=== PATIENT | male | born 1960 | race Caucasian/White ===

== ENCOUNTER 2017-03-21 14:30 | Inpatient (IN) | payer MEDICAID ==
[~2017-03-21] VITALS: Ht 182.9 cm; Wt 179.0 kg
[2017-03-21] MEDS ORDERED: SODIUM CHLORIDE 0.9% 1,000 ML IV ONE (14:43)
[2017-03-21] MEDS ORDERED: PLEASE ENTER ALLERGIES MC SCH ×2 (15:00)
[2017-03-21] MEDS ORDERED: SODIUM CHLORIDE FLUSH 10ML SYR IVF ONE ×2 (15:00→16:30)
[2017-03-21] MEDS ORDERED: PLEASE ENTER HEIGHT AND WEIGHT MC SCH (15:00)
[2017-03-21 15:20] LABS: BLOOD UREA NITROGEN 80 mg/dL (7-18)
[2017-03-21 15:26] LABS: DIFF TOTAL CELLS COUNTED 100 CELL DIFF
[2017-03-21 15:28] LABS: ANISOCYTOSIS 1+; HYPOCHROMIA 1+; MICROCYTOSIS 1+; POLYCHROMASIA 1+; VERIFY COUNTS? YES
[2017-03-21 15:29] LABS: OVALOCYTES 1+
[2017-03-21] MEDS ORDERED: GLYB2.5T2 PO (16:22)
[2017-03-21] MEDS ORDERED: SERT50TA5 PO (16:22)
[2017-03-21] MEDS ORDERED: AMLO5TAB2 PO (16:22)
[2017-03-21] MEDS ORDERED: AMLO5TAB4 PO (16:22)
[2017-03-21] MEDS ORDERED: LOSA50TA6 PO (16:22)
[2017-03-21] MEDS ORDERED: LINA5TAB PO (16:22)
[2017-03-21] MEDS ORDERED: LISI-167 PO (16:22)
[2017-03-21] MEDS ORDERED: APIX5TAB PO (16:22)
[2017-03-21] MEDS ORDERED: ATOR80TA75 PO (16:22)
[2017-03-21] MEDS ORDERED: INSULIN REGULAR 100 UNITS/ML, 3ML VIAL IVPush ONE (16:30)
[2017-03-21] MEDS ORDERED: SODIUM BICARB 8.4%, 50ML SYRINGE IVPush ONE (16:30)
[2017-03-21] MEDS ORDERED: FUROSEMIDE 40 MG/4 ML IVPush ONE (16:30)
[2017-03-21] MEDS ORDERED: CALCIUM CHLORIDE 10%, 10ML SYR IVPush ONE (16:30)
[2017-03-21] MEDS ORDERED: DEXTROSE 50%, 50ML SYRINGE IVPush ONE (16:30)
[2017-03-21] MEDS ORDERED: AMPICILLIN/SULBACTAM 1,500 MG in SODIUM CHLORIDE 0.9% 50 ML IV SCH (16:30)
[2017-03-21] MEDS ORDERED: SODIUM CHLORIDE FLUSH 10ML SYR IVF PRN (17:00)
[2017-03-21] MEDS ORDERED: INSULIN REGULAR 100 UNITS/ML, 3ML VIAL ONE (17:08)
[2017-03-21] MEDS ORDERED: SODIUM BICARBONATE 1 MEQ/ML, 50ML VIAL ONE (17:08)
[2017-03-21] MEDS ORDERED: FUROSEMIDE 40 MG/4 ML ONE (17:08)
[2017-03-21] MEDS ORDERED: CALCIUM CHLORIDE 10%, 10ML SYR ONE (17:08)
[2017-03-21] MEDS ORDERED: DEXTROSE 50%, 50ML VIAL ONE (17:08)
[2017-03-21] MEDS ORDERED: DOCUSATE 100 MG CAPSULE PO PRN (17:30)
[2017-03-21] MEDS ORDERED: POLYETHYLENE GLYCOL 17 GM PACKET PO PRN (17:30)
[2017-03-21] MEDS ORDERED: GUAIFENESIN/DM 200-20MG, 10ML UDC PO PRN (17:30)
[2017-03-21] MEDS ORDERED: ONDANSETRON ODT 4 MG PO PRN (17:30)
[2017-03-21 17:38] LABS: ABG COLLECTION SITE RIGHT RADIAL; COLLATERAL CIRCULATION TESTING NORMAL
[2017-03-21] MEDS ORDERED: VANCOMYCIN PER PHARMACY MC PRN (18:30)
[2017-03-21] MEDS ORDERED: PIPERACILLIN/TAZO/PMX 3.375GM 50 ML ONE (18:30)
[2017-03-21 19:48] LABS: ABG COLLECTION SITE RIGHT RADIAL; COLLATERAL CIRCULATION TESTING NORMAL
[2017-03-21] MEDS: SODIUM BICARB 8.4% IV SCH ×2 (19:48→22:53)
[2017-03-21] MEDS: SODIUM CHLORIDE 0.45% IV SCH ×2 (19:48→22:53)
[2017-03-21] MEDS: PIPERACILLIN/TAZO 2.25 GM in SODIUM CHLORIDE 0.9% 50 ML IV SCH (19:50)
[2017-03-21] MEDS: ENOXAPARIN 40 MG/0.4 ML SQ SCH (19:53)
[2017-03-21] MEDS ORDERED: PHARMACOKINETIC CONSULTATION MC ONE (20:00)
[2017-03-21] MEDS ORDERED: PHARMACOKINETIC MONITORING MC PRN (20:00)
[2017-03-21] MEDS: VANCOMYCIN 2,000 MG in SODIUM CHLORIDE 0.9% 500 ML IV SCH (20:49)
[2017-03-21 21:14] LABS: PATH.CAST-FLAG NOT PRESENT; SPERM-FLAG NOT PRESENT; SRC-FLAG NOT PRESENT; XTAL-FLAG NOT PRESENT; YLC-FLAG NOT PRESENT
[2017-03-21 21:16] LABS: ASPARTATE AMINO TRANSFERASE 52 U/L (15-37); BLOOD UREA NITROGEN 74 mg/dL (7-18)
[2017-03-21] MEDS ORDERED: GLUCAGON 1 MG IM PRN (22:00)
[2017-03-21] MEDS ORDERED: DEXTROSE 4 GM TAB.CHEW PO PRN (22:00)
[2017-03-21] MEDS ORDERED: DEXTROSE 50%, 50ML SYRINGE IVPush PRN (22:00)
[2017-03-21] MEDS: CLOTRIMAZOLE CRM 1%, 15GM TP SCH (22:08)
[2017-03-21 22:50] VITALS: BP_SYST 109; BP_SYST 152; BP_DIAS 92; BP_DIAS 94
[2017-03-22] MEDS: SODIUM ACETATE 75 MEQ in SODIUM CHLORIDE 0.45% 1,000 ML IV SCH ×2 (01:07→10:23)
[2017-03-22] MEDS: PIPERACILLIN/TAZO 2.25 GM in SODIUM CHLORIDE 0.9% 50 ML IV SCH ×2 (01:11→05:55)
[2017-03-22 04:00] VITALS: BP 134/64
[2017-03-22 04:47] LABS: BLOOD UREA NITROGEN 68 mg/dL (7-18)
[2017-03-22 05:40] LABS: DIFF TOTAL CELLS COUNTED 100 CELL DIFF
[2017-03-22 05:42] LABS: POLYCHROMASIA 1+; VERIFY COUNTS? YES
[2017-03-22 05:43] LABS: ANISOCYTOSIS 1+; HYPOCHROMIA 1+; MICROCYTOSIS 1+; OVALOCYTES 1+
[2017-03-22 05:50] LABS: ABG COLLECTION SITE RIGHT RADIAL; COLLATERAL CIRCULATION TESTING NORMAL
[2017-03-22] MEDS: VANCOMYCIN 2,000 MG in SODIUM CHLORIDE 0.9% 500 ML IV SCH (09:07)
[2017-03-22] MEDS: SODIUM CHLORIDE FLUSH 10ML SYR IVF SCH ×2 (09:08→21:09)
[2017-03-22] MEDS: CLOTRIMAZOLE CRM 1%, 15GM TP SCH ×2 (09:08→21:09)
[2017-03-22] MEDS ORDERED: LORazepam 2 MG/ML, 1ML ONE (10:18)
[2017-03-22] MEDS ORDERED: LORazepam 2 MG/ML, 1ML IVPush ONE (10:30)
[2017-03-22] MEDS ORDERED: PIPERACILLIN/TAZO/PMX 2.25GM 50 ML IV SCH (12:30)
[2017-03-22] MEDS: FERROUS SULFATE 325 MG TABLET PO SCH (16:13)
[2017-03-22] MEDS: ENOXAPARIN 40 MG/0.4 ML SQ SCH (16:13)
[2017-03-22] MEDS: PIPERACILLIN/TAZO 3.375 GM in SODIUM CHLORIDE 0.9% 50 ML IV SCH (17:21)
[2017-03-22] MEDS: HYDROcodone/APAP 5/325 TABLET PO PRN (21:08)
[2017-03-23] MEDS: HYDROcodone/APAP 5/325 TABLET PO PRN ×3 (00:02→20:47)
[2017-03-23] MEDS: PIPERACILLIN/TAZO 3.375 GM in SODIUM CHLORIDE 0.9% 50 ML IV SCH ×4 (00:02→18:43)
[2017-03-23 04:00] VITALS: BP 118/71
[2017-03-23 04:43] LABS: BLOOD UREA NITROGEN 53 mg/dL (7-18)
[2017-03-23] MEDS ORDERED: FUROSEMIDE 40 MG/4 ML ONE (09:31)
[2017-03-23] MEDS: SODIUM CHLORIDE FLUSH 10ML SYR IVF SCH ×2 (09:39→20:47)
[2017-03-23] MEDS: FERROUS SULFATE 325 MG TABLET PO SCH ×2 (09:39→16:28)
[2017-03-23] MEDS: FUROSEMIDE 40 MG/4 ML IV SCH (09:40)
[2017-03-23] MEDS: CLOTRIMAZOLE CRM 1%, 15GM TP SCH ×3 (09:41→21:00)
[2017-03-23] MEDS: INSULIN ASPART 100 UNITS/ML, PEN SQ-INSULIN SCH ×3 (11:00→20:41)
[2017-03-23 12:08] VITALS: BP 111/46
[2017-03-23] MEDS: DIPHENHYDRAMINE 25 MG CAPSULE PO PRN (14:16)
[2017-03-23 19:23] VITALS: BP 116/64
[2017-03-23] MEDS: APIXABAN 5 MG TABLET PO SCH (20:47)
[2017-03-23] MEDS: VANCOMYCIN 2,500 MG in SODIUM CHLORIDE 0.9% 500 ML IV SCH (20:47)
[2017-03-23] MEDS: ATORVASTATIN 80 MG TABLET PO SCH (20:47)
[2017-03-24] MEDS: PIPERACILLIN/TAZO 3.375 GM in SODIUM CHLORIDE 0.9% 50 ML IV SCH ×4 (00:31→17:58)
[2017-03-24 01:09] VITALS: BP 98/55
[2017-03-24 05:22] LABS: BLOOD UREA NITROGEN 51 mg/dL (7-18)
[2017-03-24 06:19] LABS: DIFF TOTAL CELLS COUNTED 100 CELL DIFF
[2017-03-24 06:22] LABS: ANISOCYTOSIS 1+; MICROCYTOSIS 1+; VERIFY COUNTS? YES
[2017-03-24 06:23] LABS: HYPOCHROMIA 1+; OVALOCYTES 1+; POLYCHROMASIA 1+
[2017-03-24] MEDS: INSULIN ASPART 100 UNITS/ML, PEN SQ-INSULIN SCH ×4 (07:00→21:00)
[2017-03-24 07:09] VITALS: BP 112/64
[2017-03-24] MEDS: FERROUS SULFATE 325 MG TABLET PO SCH ×2 (08:45→17:58)
[2017-03-24] MEDS: FUROSEMIDE 40 MG/4 ML IV SCH (08:45)
[2017-03-24] MEDS: CLOTRIMAZOLE CRM 1%, 15GM TP SCH ×2 (08:46→21:00)
[2017-03-24] MEDS: SODIUM CHLORIDE FLUSH 10ML SYR IVF SCH ×2 (08:46→21:10)
[2017-03-24] MEDS: APIXABAN 5 MG TABLET PO SCH ×2 (08:46→21:10)
[2017-03-24] MEDS: SERTRALINE 50MG TABLET PO SCH (08:46)
[2017-03-24] MEDS: HYDROcodone/APAP 5/325 TABLET PO PRN (08:58)
[2017-03-24 12:52] VITALS: BP 116/71
[2017-03-24 20:00] VITALS: BP 112/72
[2017-03-24] MEDS: ATORVASTATIN 80 MG TABLET PO SCH (21:10)
[2017-03-24] MEDS: VANCOMYCIN 2,500 MG in SODIUM CHLORIDE 0.9% 500 ML IV SCH (21:10)
[2017-03-24] MEDS: MICONAZOLE CRM 2%, 15GM TP SCH (22:33)
[2017-03-24] MEDS: DIPHENHYDRAMINE 25 MG CAPSULE PO PRN (22:33)
[2017-03-25] MEDS: PIPERACILLIN/TAZO 3.375 GM in SODIUM CHLORIDE 0.9% 50 ML IV SCH ×3 (00:32→12:39)
[2017-03-25 00:41] VITALS: BP 127/79
[2017-03-25 04:59] LABS: ASPARTATE AMINO TRANSFERASE 26 U/L (15-37); BLOOD UREA NITROGEN 49 mg/dL (7-18)
[2017-03-25 07:35] VITALS: BP 123/68
[2017-03-25] MEDS ORDERED: PROPOFOL 10 MG/ML, 50ML ONE (08:55)
[2017-03-25] MEDS: INSULIN ASPART 100 UNITS/ML, PEN SQ-INSULIN SCH ×4 (09:00→20:41)
[2017-03-25] MEDS ORDERED: ERGOCALCIFEROL 50,000 UNIT CAPSULE PO SCH (10:00)
[2017-03-25] MEDS: MICONAZOLE CRM 2%, 15GM TP SCH ×2 (11:00→20:41)
[2017-03-25] MEDS: SODIUM CHLORIDE FLUSH 10ML SYR IVF SCH ×2 (12:39→20:40)
[2017-03-25] MEDS: APIXABAN 5 MG TABLET PO SCH ×2 (12:39→20:40)
[2017-03-25] MEDS: SERTRALINE 50MG TABLET PO SCH (12:40)
[2017-03-25 14:26] VITALS: BP 120/72
[2017-03-25] MEDS: IRON SUCROSE COMPLEX 100MG/5ML IV SCH (17:47)
[2017-03-25 19:10] VITALS: BP 138/80
[2017-03-25] MEDS: FUROSEMIDE 40 MG/4 ML IV SCH (20:39)
[2017-03-25] MEDS: ATORVASTATIN 80 MG TABLET PO SCH (20:40)
[2017-03-25] MEDS: LACTOBACILLUS CHEW TABLET PO SCH ×2 (20:40→21:00)
[2017-03-25] MEDS: LOPERAMIDE 2 MG CAPSULE PO PRN (20:41)
[2017-03-25] MEDS: HYDROcodone/APAP 5/325 TABLET PO PRN (20:42)
[2017-03-26 01:14] VITALS: BP 144/83
[2017-03-26 05:25] LABS: BLOOD UREA NITROGEN 47 mg/dL (7-18)
[2017-03-26 06:00] LABS: ANISOCYTOSIS 1+; HYPOCHROMIA 1+; POLYCHROMASIA 1+
[2017-03-26 06:01] LABS: OVALOCYTES 1+; POIKILOCYTOSIS 1+
[2017-03-26 07:50] VITALS: BP 125/74
[2017-03-26] MEDS: INSULIN ASPART 100 UNITS/ML, PEN SQ-INSULIN SCH ×4 (08:00→20:01)
[2017-03-26] MEDS: FUROSEMIDE 40 MG/4 ML IV SCH ×2 (08:12→20:18)
[2017-03-26] MEDS: APIXABAN 5 MG TABLET PO SCH ×2 (08:12→20:17)
[2017-03-26] MEDS: SERTRALINE 50MG TABLET PO SCH (08:12)
[2017-03-26] MEDS: LACTOBACILLUS CHEW TABLET PO SCH ×3 (08:12→20:16)
[2017-03-26] MEDS: SODIUM CHLORIDE FLUSH 10ML SYR IVF SCH ×2 (08:13→20:16)
[2017-03-26] MEDS: LOPERAMIDE 2 MG CAPSULE PO PRN (08:25)
[2017-03-26] MEDS: DIPHENHYDRAMINE 25 MG CAPSULE PO PRN ×2 (08:29→20:17)
[2017-03-26 14:25] VITALS: BP 131/89
[2017-03-26] MEDS: MICONAZOLE CRM 2%, 15GM TP SCH ×2 (17:36→20:17)
[2017-03-26] MEDS: METOPROLOL TARTRATE 25 MG TABLET PO SCH (17:37)
[2017-03-26] MEDS: IRON SUCROSE COMPLEX 100MG/5ML IV SCH (17:37)
[2017-03-26 19:49] VITALS: BP 118/78
[2017-03-26] MEDS: ATORVASTATIN 80 MG TABLET PO SCH (20:17)
[2017-03-27 01:37] VITALS: BP 145/84
[2017-03-27 05:22] LABS: BLOOD UREA NITROGEN 44 mg/dL (7-18)
[2017-03-27] MEDS: METOPROLOL TARTRATE 25 MG TABLET PO SCH ×2 (05:47→17:41)
[2017-03-27 08:00] VITALS: BP 156/84
[2017-03-27] MEDS: INSULIN ASPART 100 UNITS/ML, PEN SQ-INSULIN SCH ×4 (08:00→20:02)
[2017-03-27] MEDS: LACTOBACILLUS CHEW TABLET PO SCH ×3 (08:12→20:01)
[2017-03-27] MEDS: MICONAZOLE CRM 2%, 15GM TP SCH ×2 (08:12→20:02)
[2017-03-27] MEDS: HYDROcodone/APAP 5/325 TABLET PO PRN (08:12)
[2017-03-27] MEDS: FUROSEMIDE 40 MG/4 ML IV SCH ×2 (08:13→20:00)
[2017-03-27] MEDS: SERTRALINE 50MG TABLET PO SCH (08:13)
[2017-03-27] MEDS: APIXABAN 5 MG TABLET PO SCH ×2 (08:13→20:01)
[2017-03-27] MEDS: SODIUM CHLORIDE FLUSH 10ML SYR IVF SCH ×2 (08:13→20:01)
[2017-03-27 13:25] VITALS: BP 147/84
[2017-03-27] MEDS: IRON SUCROSE COMPLEX 100MG/5ML IV SCH (17:41)
[2017-03-27] MEDS: LOPERAMIDE 2 MG CAPSULE PO PRN (17:42)
[2017-03-27 19:21] VITALS: BP 156/87
[2017-03-27] MEDS: ATORVASTATIN 80 MG TABLET PO SCH (20:01)
[2017-03-28] MEDS: DIPHENHYDRAMINE 25 MG CAPSULE PO PRN ×2 (02:00→22:06)
[2017-03-28 02:05] VITALS: BP 151/83
[2017-03-28] MEDS: METOPROLOL TARTRATE 25 MG TABLET PO SCH ×2 (05:34→17:42)
[2017-03-28 05:58] LABS: BLOOD UREA NITROGEN 39 mg/dL (7-18)
[2017-03-28] MEDS: INSULIN ASPART 100 UNITS/ML, PEN SQ-INSULIN SCH ×4 (07:00→21:00)
[2017-03-28 08:00] VITALS: BP 144/79
[2017-03-28] MEDS: SERTRALINE 50MG TABLET PO SCH ×2 (09:00→09:19)
[2017-03-28] MEDS: SODIUM CHLORIDE FLUSH 10ML SYR IVF SCH ×2 (09:18→22:02)
[2017-03-28] MEDS: APIXABAN 5 MG TABLET PO SCH ×2 (09:19→22:01)
[2017-03-28] MEDS: LACTOBACILLUS CHEW TABLET PO SCH ×3 (09:19→22:01)
[2017-03-28] MEDS: FUROSEMIDE 40 MG/4 ML IV SCH ×2 (09:19→22:02)
[2017-03-28] MEDS: LOPERAMIDE 2 MG CAPSULE PO PRN ×2 (09:19→17:49)
[2017-03-28] MEDS: MICONAZOLE CRM 2%, 15GM TP SCH ×2 (09:20→22:02)
[2017-03-28 13:57] VITALS: BP 149/90
[2017-03-28] MEDS: IRON SUCROSE COMPLEX 100MG/5ML IV SCH (17:42)
[2017-03-28 21:03] VITALS: BP 115/70
[2017-03-28] MEDS: ATORVASTATIN 80 MG TABLET PO SCH (22:01)
[2017-03-29 03:52] VITALS: BP 139/73
[2017-03-29] MEDS: DIPHENHYDRAMINE 25 MG CAPSULE PO PRN (04:11)
[2017-03-29] MEDS: LOPERAMIDE 2 MG CAPSULE PO PRN (04:11)
[2017-03-29] MEDS ORDERED: VANCOMYCIN 2,000 MG in SODIUM CHLORIDE 0.9% 500 ML IV ONE (05:00)
[2017-03-29] MEDS: METOPROLOL TARTRATE 25 MG TABLET PO SCH ×2 (05:22→17:13)
[2017-03-29 05:29] LABS: ASPARTATE AMINO TRANSFERASE 30 U/L (15-37); BLOOD UREA NITROGEN 34 mg/dL (7-18)
[2017-03-29] MEDS: INSULIN ASPART 100 UNITS/ML, PEN SQ-INSULIN SCH ×4 (08:07→20:14)
[2017-03-29] MEDS: FUROSEMIDE 40 MG/4 ML IV SCH ×2 (08:45→20:13)
[2017-03-29] MEDS: LACTOBACILLUS CHEW TABLET PO SCH ×3 (08:45→20:14)
[2017-03-29 08:46] VITALS: BP 129/66
[2017-03-29] MEDS: SODIUM CHLORIDE FLUSH 10ML SYR IVF SCH ×2 (08:46→20:13)
[2017-03-29] MEDS: APIXABAN 5 MG TABLET PO SCH ×2 (08:46→20:13)
[2017-03-29] MEDS: MICONAZOLE CRM 2%, 15GM TP SCH ×3 (08:46→20:33)
[2017-03-29] MEDS: SERTRALINE 50MG TABLET PO SCH (08:52)
[2017-03-29] MEDS ORDERED: [UNRECOGNIZED DRUG - REMARK] MC SCH (10:30)
[2017-03-29] MEDS ORDERED: INSTRUCTION SEE COMMENTS XX PRN (11:30)
[2017-03-29] MEDS: IRON SUCROSE COMPLEX 100MG/5ML IV SCH (17:13)
[2017-03-29 19:09] VITALS: BP 124/79
[2017-03-29] MEDS: ATORVASTATIN 80 MG TABLET PO SCH (20:13)
[2017-03-30 02:46] VITALS: BP 145/76
[2017-03-30] MEDS: METOPROLOL TARTRATE 25 MG TABLET PO SCH ×2 (05:26→18:27)
[2017-03-30 05:34] LABS: BLOOD UREA NITROGEN 34 mg/dL (7-18)
[2017-03-30 06:59] VITALS: BP 132/76
[2017-03-30] MEDS: INSULIN ASPART 100 UNITS/ML, PEN SQ-INSULIN SCH ×4 (07:37→20:13)
[2017-03-30] MEDS: LACTOBACILLUS CHEW TABLET PO SCH ×3 (07:57→20:13)
[2017-03-30] MEDS: FUROSEMIDE 40 MG/4 ML IV SCH ×2 (07:57→20:12)
[2017-03-30] MEDS: SERTRALINE 50MG TABLET PO SCH (07:57)
[2017-03-30] MEDS: APIXABAN 5 MG TABLET PO SCH ×2 (07:57→20:13)
[2017-03-30] MEDS: SODIUM CHLORIDE FLUSH 10ML SYR IVF SCH ×2 (07:57→20:12)
[2017-03-30] MEDS: MICONAZOLE CRM 2%, 15GM TP SCH ×2 (07:58→20:13)
[2017-03-30 14:30] VITALS: BP 119/66
[2017-03-30 20:05] VITALS: BP 147/81
[2017-03-30] MEDS: ATORVASTATIN 80 MG TABLET PO SCH (20:13)
[2017-03-31] MEDS: LOPERAMIDE 2 MG CAPSULE PO PRN (00:24)
[2017-03-31] MEDS: HYDROcodone/APAP 5/325 TABLET PO PRN (00:24)
[2017-03-31 02:40] VITALS: BP 148/77
[2017-03-31 05:25] LABS: BLOOD UREA NITROGEN 30 mg/dL (7-18)
[2017-03-31] MEDS: METOPROLOL TARTRATE 25 MG TABLET PO SCH (05:46)
[2017-03-31 07:04] VITALS: BP 143/74
[2017-03-31] MEDS: INSULIN ASPART 100 UNITS/ML, PEN SQ-INSULIN SCH ×2 (08:07→11:26)
[2017-03-31] MEDS: APIXABAN 5 MG TABLET PO SCH (08:15)
[2017-03-31] MEDS: FUROSEMIDE 40 MG/4 ML IV SCH (08:15)
[2017-03-31] MEDS: SERTRALINE 50MG TABLET PO SCH (08:15)
[2017-03-31] MEDS: SODIUM CHLORIDE FLUSH 10ML SYR IVF SCH (08:15)
[2017-03-31] MEDS: LACTOBACILLUS CHEW TABLET PO SCH (08:15)
[2017-03-31] MEDS: MICONAZOLE CRM 2%, 15GM TP SCH (08:15)
[2017-03-31] MEDS ORDERED: ACID1TAB7 PO (10:00)
[2017-03-31] MEDS ORDERED: ERGO500017 PO (10:00)
[2017-03-31] MEDS ORDERED: FURO40TA6 PO (10:00)
[2017-03-31] MEDS ORDERED: CEPH-368 PO (10:00)
[2017-03-31] MEDS ORDERED: HYDR-3240 PO (10:00)
[2017-03-31] MEDS ORDERED: HYDR25TA11 PO (10:00)
[2017-03-31] MEDS ORDERED: METO25TA35 PO (10:00)
[2017-03-31] MEDS ORDERED: ONDA4TAB13 PO (10:00)
[2017-03-31] MEDS ORDERED: MICO14CR TP (10:00)
[2017-03-31] MEDS ORDERED: LOPE2CAP PO (10:00)
[2017-03-31 14:15] VITALS: BP 140/71
== END 2017-03-31 17:16 | disposition home or self-care (01) | DRG 682 ==
LOC: ED 15:55 → EDIP 17:00 → CCU 19:23 → 4WST 03-23 11:43
PROVIDERS: ADMIT Internal Medicine
PROC: 5A09357 Assistance with Respiratory Ventilation, Less than 24 Consecutive Hours, Continuous Positive Airway Pressure (ICD-10-PCS; principal; 2017-03-21)
PROC: 0T9B70Z Drainage of Bladder with Drainage Device, Via Natural or Artificial Opening (ICD-10-PCS; 2017-03-21)
DX: N17.0 Acute kidney failure with tubular necrosis (principal); G93.41 Metabolic encephalopathy; J96.01 Acute respiratory failure with hypoxia; J96.02 Acute respiratory failure with hypercapnia; L03.115 Cellulitis of right lower limb; Z68.43 Body mass index [BMI] 50.0-59.9, adult; E87.4 Mixed disorder of acid-base balance; R62.7 Adult failure to thrive; B37.9 Candidiasis, unspecified; E11.22 Type 2 diabetes mellitus with diabetic chronic kidney disease; N18.9 Chronic kidney disease, unspecified; E11.42 Type 2 diabetes mellitus with diabetic polyneuropathy; E11.621 Type 2 diabetes mellitus with foot ulcer; E11.51 Type 2 diabetes mellitus with diabetic peripheral angiopathy without gangrene; E66.01 Morbid (severe) obesity due to excess calories; E87.5 Hyperkalemia; I48.91 Unspecified atrial fibrillation; L97.519 Non-pressure chronic ulcer of other part of right foot with unspecified severity; E87.70 Fluid overload, unspecified; G47.33 Obstructive sleep apnea (adult) (pediatric); D50.9 Iron deficiency anemia, unspecified; E11.21 Type 2 diabetes mellitus with diabetic nephropathy; I12.9 Hypertensive chronic kidney disease with stage 1 through stage 4 chronic kidney disease, or unspecified chronic kidney disease; Z53.20 Procedure and treatment not carried out because of patient's decision for unspecified reasons; Z99.3 Dependence on wheelchair; Z89.512 Acquired absence of left leg below knee; Z79.84 Long term (current) use of oral hypoglycemic drugs; Z79.899 Other long term (current) drug therapy
CPT/HCPCS: 36415; 36600; 71010; 76770; 80048; 80053; 80069; 80202; 81001; 82010; 82040; 82088; 82306; 82378; 82436; 82570; 82728; 82803; 82962; 83540; 83550; 83605; 83735; 83880; 83970; 84100; 84132; 84133; 84145; 84156; 84244; 84300; 84550; 85025; 86301; 87040; 87070; 87081; 87147; 87186; 87205; 87324; 93005; 94660; 96361; 96365; 96375; C8929; J1650; J1756; J1940; J2543; J2704; J3370; J0295; J7030; J7040; Q0163; Q0177